=== PATIENT | male | born 1960 ===

== ENCOUNTER 2021-01-26 17:21 | Inpatient (IN) ==
[2021-01-26] MEDS ORDERED: ASPIRIN 325 MG TABLET ONE (17:37)
[2021-01-26] MEDS ORDERED: ONDANSETRON 4 MG/2 ML VIAL ONE ×2 (17:38→18:44)
[2021-01-26] MEDS ORDERED: MORPHINE 2 MG/1 ML SYRINGE ONE ×3 (17:39→17:47)
[2021-01-26] MEDS ORDERED: HEPARIN 5,000 UNIT/1 ML VIAL ONE ×3 (17:40→18:54)
[2021-01-26] MEDS ORDERED: NITROGLYCERIN SL 0.4 MG TABLET SL ONE (17:41)
[2021-01-26 17:54] LABS: Basophils # 0.1 10*3/uL (0.0-0.2); Basophils % 0.2 % (0.0-0.8); Eosinophils % 0.1 % (0.00-10.9); Hematocrit 43.5 VOL% (42.0-52.0); Hemoglobin 14.4 GM/DL (14.0-18.0); Immature Granulocytes % 1.2 %; Immature Granulocytes Absolute 0.29 #; Lymphocytes # 1.8 10*3/uL (1.4-4.0); Lymphocytes % 7.5 % (21.2-54.2); Mean Corpuscular HGB Conc 33.1 GM/DL (32-36); Mean Corpuscular Volume 87.9 FL (87-102); Mean Platelet Volume 9.3 FL (9.6-12.0); Monocytes % 4.4 % (1.7-12.7); Neutrophils % 86.6 % (38.7-73.9); Platelet Count 277 T/CUMM (130-400); Red Blood Count 4.95 MC/CUMM (3.8-5.5); Red Cell Distribution Width 13.1 % (9.3-17.3)
[2021-01-26] MEDS ORDERED: NITROGLYCERIN DRIP 50 MG/250 ML BOTTLE IV ONE (18:06)
[2021-01-26] MEDS ORDERED: VERAPAMIL 5 MG/2 ML VIAL ONE (18:06)
[2021-01-26] MEDS ORDERED: ATROPINE 1 MG/10 ML SYRINGE ONE (18:07)
[2021-01-26] MEDS ORDERED: MIDAZOLAM 2 MG/2 ML VIAL ONE ×2 (18:07→18:32)
[2021-01-26] MEDS ORDERED: fentaNYL 100 MCG/2 ML VIAL ONE ×2 (18:07→18:48)
[2021-01-26 18:09] LABS: Albumin 3.6 G/DL (3.4-5.0); Bilirubin,Total 1.5 MG/DL (0.20-1.00); Calcium 9.3 MG/DL (8.5-10.1); Potassium 3.7 MMOL/L (3.5-5.1); Total Protein 6.9 G/DL (6.4-8.2)
[2021-01-26 18:21] LABS: Atypical Lymphocytes 1+; Lymphocytes 6 % (20-55); Platelet Estimate Normal; Segmented Neutrophils 86 % (50-85); Total Cells Counted 100
[2021-01-26] MEDS ORDERED: TIROFIBAN 5,000 MCG/100 ML PREMIX IV ONE (18:22)
[2021-01-26] MEDS ORDERED: ASPIRIN 325 MG TABLET PO STA (18:26)
[2021-01-26] MEDS ORDERED: MORPHINE 2 MG/1 ML SYRINGE IV STA (18:28)
[2021-01-26] MEDS ORDERED: HEPARIN 5,000 UNIT/1 ML VIAL IV STA (18:29)
[2021-01-26] MEDS ORDERED: ONDANSETRON 4 MG/2 ML VIAL IV STA (18:29)
[2021-01-26] MEDS ORDERED: NITROGLYCERIN SL 0.4 MG TABLET SL STA (18:29)
[2021-01-26] MEDS ORDERED: HEPARIN/NACL 0.9% 2 UNITS/ML 3,000 UNIT/1,500 ML BAG IV ONE (18:36)
[2021-01-26] MEDS ORDERED: NITROPRUSSIDE 50 MG/2 ML VIAL ONE (18:49)
[2021-01-26] MEDS ORDERED: MORPHINE 2 MG/1 ML SYRINGE IV PRN (19:15)
[2021-01-26] MEDS ORDERED: ZALEPLON 5 MG CAPSULE PO PRN (19:15)
[2021-01-26] MEDS ORDERED: NITROGLYCERIN DRIP 50 MG/250 ML BOTTLE IV PRN (19:19)
[2021-01-26] MEDS ORDERED: DEXTROSE 50% 25 GM/50 ML VIAL IV PRN (19:21)
[2021-01-26] MEDS ORDERED: GLUCAGON 1 MG VIAL IM PRN (19:21)
[2021-01-26] MEDS ORDERED: TIROFIBAN 5,000 MCG/100 ML PREMIX IV SCH (19:30)
[2021-01-26] MEDS ORDERED: SODIUM CHLORIDE 0.9% 1,000 ML IV SCH (19:30)
[2021-01-26 19:42] LABS: Calcium 8.1 MG/DL (8.5-10.1)
[2021-01-26 19:43] LABS: Albumin 2.6 G/DL (3.4-5.0); Bilirubin,Direct 0.274 MG/DL (0.0-0.20); Bilirubin,Indirect 0.9 MG/DL (0.0-1.0); Bilirubin,Total 1.22 MG/DL (0.20-1.00); Osmolality,Calculated 270.2 MOS/KG (273-304); Potassium 3.5 MMOL/L (3.5-5.1); Total Protein 5.6 G/DL (6.4-8.2); VLDL Cholesterol 22.2 MG/DL
[2021-01-26 19:44] LABS: Risk Ratio 4.19
[2021-01-26 19:46] LABS: INR 1.1; PT Patient Result 11.9 SECS (10.5-12.0)
[2021-01-26] MEDS ORDERED: POTASSIUM CHLORIDE 20 MEQ TABLET PO SCH (21:00)
[2021-01-26] MEDS ORDERED: carvediloL 3.125 MG TABLET ONE (21:24)
[2021-01-26] MEDS ORDERED: TICAGRELOR 90 MG TABLET ONE (21:24)
[2021-01-26] MEDS ORDERED: ROSUVASTATIN 20 MG TABLET ONE (21:24)
[2021-01-26] MEDS ORDERED: POTASSIUM CHLORIDE 20 MEQ TABLET PO ONE (21:24)
[2021-01-26] MEDS: ROSUVASTATIN 20 MG TABLET PO SCH (21:39)
[2021-01-26] MEDS: TICAGRELOR 90 MG TABLET PO SCH (21:39)
[2021-01-26] MEDS: INSULIN REGULAR 100 UNIT/ML SUBCUT SCH (21:39)
[2021-01-26] MEDS: carvediloL 3.125 MG TABLET PO SCH (21:39)
[2021-01-27 02:05] LABS: Basophils % 0.2 % (0.0-0.8); Calcium 8.3 MG/DL (8.5-10.1); Eosinophils # 0.1 10*3/uL (0.0-0.87); Eosinophils % 0.7 % (0.00-10.9); Immature Granulocytes % 0.8 %; Immature Granulocytes Absolute 0.16 #; Lymphocytes # 1.3 10*3/uL (1.4-4.0); Lymphocytes % 6.9 % (21.2-54.2); Mean Corpuscular HGB Conc 33.3 GM/DL (32-36); Mean Corpuscular Volume 88.9 FL (87-102); Mean Platelet Volume 9.2 FL (9.6-12.0); Monocytes % 3.3 % (1.7-12.7); Neutrophils % 88.1 % (38.7-73.9); Osmolality,Calculated 272.1 MOS/KG (273-304); Platelet Count 247 T/CUMM (130-400); Potassium 4.3 MMOL/L (3.5-5.1); Red Blood Count 4.05 MC/CUMM (3.8-5.5); Red Cell Distribution Width 13.2 % (9.3-17.3)
[2021-01-27 02:07] LABS: White Blood Count 18.9 T/CUMM (4-12)
[2021-01-27] MEDS: INSULIN REGULAR 100 UNIT/ML SUBCUT SCH ×4 (08:45→20:25)
[2021-01-27] MEDS: ASPIRIN EC 81 MG TABLET PO SCH (08:59)
[2021-01-27] MEDS: TICAGRELOR 90 MG TABLET PO SCH ×2 (08:59→20:24)
[2021-01-27] MEDS: FUROSEMIDE 40 MG TABLET PO SCH (08:59)
[2021-01-27] MEDS: carvediloL 3.125 MG TABLET PO SCH ×2 (08:59→20:24)
[2021-01-27] MEDS: POTASSIUM CHLORIDE 20 MEQ TABLET PO SCH (08:59)
[2021-01-27] MEDS ORDERED: VALSARTAN 80 MG TABLET PO SCH (09:00)
[2021-01-27 14:07] LABS: Barbiturates Screen,Urine Negative (Negative); Benzodiazepines Screen,Urine Positive (Negative); Cannabinoid Screen,Urine Positive (Negative); Opiate Screen,Urine Negative (Negative); Phencyclidine Screen,Urine Negative (Negative)
[2021-01-27] MEDS: ROSUVASTATIN 20 MG TABLET PO SCH (20:25)
[2021-01-28] MEDS: diphenhydrAMINE CAP 25 MG CAPSULE PO PRN (05:05)
[2021-01-28 05:12] LABS: Basophils % 0.1 % (0.0-0.8); Eosinophils % 0.3 % (0.00-10.9); Hematocrit 37.6 VOL% (42.0-52.0); Hemoglobin 12.6 GM/DL (14.0-18.0); Immature Granulocytes % 1.1 %; Immature Granulocytes Absolute 0.15 #; Lymphocytes # 1.6 10*3/uL (1.4-4.0); Lymphocytes % 11.1 % (21.2-54.2); Mean Corpuscular HGB Conc 33.5 GM/DL (32-36); Mean Corpuscular Volume 88.5 FL (87-102); Mean Platelet Volume 9.5 FL (9.6-12.0); Neutrophils % 85.4 % (38.7-73.9); Platelet Count 218 T/CUMM (130-400); Red Blood Count 4.25 MC/CUMM (3.8-5.5); Red Cell Distribution Width 13.2 % (9.3-17.3); White Blood Count 14.3 T/CUMM (4-12)
[2021-01-28 05:43] LABS: Calcium 8.7 MG/DL (8.5-10.1); Osmolality,Calculated 273.7 MOS/KG (273-304); Potassium 3.5 MMOL/L (3.5-5.1)
[2021-01-28] MEDS: POTASSIUM CHLORIDE 20 MEQ TABLET PO SCH (09:03)
[2021-01-28] MEDS: VALSARTAN 80 MG TABLET PO SCH (09:03)
[2021-01-28] MEDS: carvediloL 6.25 MG TABLET PO SCH ×2 (09:03→21:09)
[2021-01-28] MEDS: TICAGRELOR 90 MG TABLET PO SCH ×2 (09:04→21:09)
[2021-01-28] MEDS: ASPIRIN EC 81 MG TABLET PO SCH (09:04)
[2021-01-28] MEDS: FUROSEMIDE 40 MG TABLET PO SCH (09:04)
[2021-01-28] MEDS: INSULIN REGULAR 100 UNIT/ML SUBCUT SCH ×4 (10:04→21:29)
[2021-01-28] MEDS: CETIRIZINE 10 MG TABLET PO SCH ×2 (16:04→21:09)
[2021-01-28] MEDS: ROSUVASTATIN 20 MG TABLET PO SCH (21:09)
[2021-01-29 08:37] LABS: Basophils % 0.1 % (0.0-0.8); Eosinophils # 0.1 10*3/uL (0.0-0.87); Eosinophils % 0.5 % (0.00-10.9); Hematocrit 36.6 VOL% (42.0-52.0); Immature Granulocytes % 1.5 %; Immature Granulocytes Absolute 0.21 #; Lymphocytes # 1.6 10*3/uL (1.4-4.0); Lymphocytes % 11.6 % (21.2-54.2); Mean Corpuscular HGB Conc 32.8 GM/DL (32-36); Mean Corpuscular Volume 88.8 FL (87-102); Mean Platelet Volume 9.4 FL (9.6-12.0); Monocytes % 2.6 % (1.7-12.7); Neutrophils % 83.7 % (38.7-73.9); Platelet Count 222 T/CUMM (130-400); Red Blood Count 4.12 MC/CUMM (3.8-5.5); Red Cell Distribution Width 13.2 % (9.3-17.3); White Blood Count 13.7 T/CUMM (4-12)
[2021-01-29] MEDS: ASPIRIN EC 81 MG TABLET PO SCH (08:43)
[2021-01-29] MEDS: POTASSIUM CHLORIDE 20 MEQ TABLET PO SCH (08:43)
[2021-01-29] MEDS: FUROSEMIDE 40 MG TABLET PO SCH (08:43)
[2021-01-29] MEDS: carvediloL 6.25 MG TABLET PO SCH ×2 (08:43→21:18)
[2021-01-29] MEDS: CETIRIZINE 10 MG TABLET PO SCH ×3 (08:43→21:18)
[2021-01-29] MEDS: VALSARTAN 80 MG TABLET PO SCH (08:43)
[2021-01-29] MEDS: TICAGRELOR 90 MG TABLET PO SCH ×2 (08:43→21:18)
[2021-01-29 08:53] LABS: Calcium 8.9 MG/DL (8.5-10.1); Potassium 3.6 MMOL/L (3.5-5.1)
[2021-01-29] MEDS: INSULIN REGULAR 100 UNIT/ML SUBCUT SCH ×2 (10:08→12:40)
[2021-01-29] MEDS: diphenhydrAMINE CAP 25 MG CAPSULE PO PRN (17:44)
[2021-01-29] MEDS: ROSUVASTATIN 20 MG TABLET PO SCH (21:17)
[2021-01-30 06:42] LABS: Basophils % 0.2 % (0.0-0.8); Eosinophils # 0.1 10*3/uL (0.0-0.87); Eosinophils % 0.8 % (0.00-10.9); Hematocrit 35.2 VOL% (42.0-52.0); Hemoglobin 11.6 GM/DL (14.0-18.0); Immature Granulocytes % 1.5 %; Immature Granulocytes Absolute 0.19 #; Lymphocytes # 1.9 10*3/uL (1.4-4.0); Lymphocytes % 14.2 % (21.2-54.2); Mean Corpuscular Volume 88.7 FL (87-102); Mean Platelet Volume 9.7 FL (9.6-12.0); Monocytes % 3.5 % (1.7-12.7); Neutrophils % 79.8 % (38.7-73.9); Platelet Count 206 T/CUMM (130-400); Red Blood Count 3.97 MC/CUMM (3.8-5.5)
[2021-01-30 07:05] LABS: Calcium 8.8 MG/DL (8.5-10.1); Potassium 3.7 MMOL/L (3.5-5.1)
[2021-01-30] MEDS: diphenhydrAMINE CAP 25 MG CAPSULE PO PRN (09:27)
[2021-01-30] MEDS: POTASSIUM CHLORIDE 20 MEQ TABLET PO SCH (09:28)
[2021-01-30] MEDS: CETIRIZINE 10 MG TABLET PO SCH (09:28)
[2021-01-30] MEDS: VALSARTAN 80 MG TABLET PO SCH (09:28)
[2021-01-30] MEDS: FUROSEMIDE 40 MG TABLET PO SCH (09:28)
[2021-01-30] MEDS: TICAGRELOR 90 MG TABLET PO SCH (09:29)
[2021-01-30] MEDS: carvediloL 6.25 MG TABLET PO SCH (09:29)
[2021-01-30] MEDS: ASPIRIN EC 81 MG TABLET PO SCH (09:29)
[2021-01-30 10:12] VITALS: BP 91/55
== END 2021-01-30 11:57 | disposition home or self-care (01) | DRG 251 ==
LOC: N.ED 17:21 → N.ICU 17:56 → N.EDINP 18:16 → N.ICU 18:37 → N.TELES 01-28 16:33
PROVIDERS: ADMIT Internal Medicine Cardiovascular Disease; ATTEND Internal Medicine Cardiovascular Disease
PROC: CLCCHCL (ICD-10-PCS; 2021-01-26 18:30)